=== PATIENT | male | born 1980 | race African-American/Black ===

== ENCOUNTER 2019-07-23 10:07 | Emergency (ER) | payer OTHER ==
[2019-07-23 10:42] LABS: #Basophils 0.1 thou/uL (0.0-0.2); #Eosinphils 0.2 thou/uL (0.0-0.7); #Lymphocytes 1.7 thou/uL (1.20-3.40); #Monocytes 0.5 thou/uL (0.11-0.59); %Basophils 0.9 % (0.0-1.0); %Eosinophils 3.4 % (0.0-10.0); %Lymphocytes 31.9 % (21.0-51.0); %Monocytes 9.2 % (0.0-10.0); %Neutrophils 54.6 % (42.0-75.0); Hemoglobin 13.9 g/dL (14.0-18.0); Mean Corpuscular HGB CONC 33.2 g/dL (32.0-36.0); Mean Corpuscular Hemoglobin 26.1 pg (27.0-31.0); Mean Corpuscular Volume 78.7 fL (78.0-98.0); Mean Platelet Volume 8.3 fL (7.4-10.4); Platelet Count 191 thou/uL (130-400); RBC Distribution Width 13.2 % (11.5-14.5); Red Blood Cell (RBC) Count 5.32 mill/uL (4.70-6.10); White Blood Cell (WBC) Count 5.4 thou/uL (4.8-10.8)
[2019-07-23] MEDS ORDERED: Iopamidol-370 76% 500 ML 1 ML ONE (11:05)
--- NOTE | 2019-07-23 11:12 | RAD ---
Exam: Chest one view HISTORY:Chest pain Comparison: None FINDINGS: Cardiac silhouette: Normal. There are sternotomy wires. Aorta: Unremarkable Pulmonary vessels: Normal Costophrenic angles: Clear LUNGS: No masses or consolidation. Pneumothorax: None Osseous abnormalities: None IMPRESSION: No acute cardiopulmonary process.
[2019-07-23 11:36] LABS: ALT (SGPT) 31 U/L (8-55); AST (SGOT) 23 U/L (5-34); Albumin 4.2 g/dL (3.5-5.0); Alkaline Phosphatase 50 U/L (40-110); Anion Gap 14 mmol/L (10-20); BUN (Urea Nitrogen) 12 mg/dL (8.9-20.6); Bilirubin, Total 0.7 mg/dL (0.2-1.2); CK (CPK) 252 U/L (30-200); Calc. Creatinine Clearance 0 mL/min (70-130); Calcium 8.9 mg/dL (7.8-10.44); Carbon Dioxide 21 mmol/L (22-29); Chloride 105 mmol/L (98-107); Estimated GFR-MDRD Greater than 90; Globulin 3.2 g/dL (2.4-3.5); Glucose 105 mg/dL (70-105); Lipase 8 U/L (8-78); Potassium 5.1 mmol/L (3.5-5.1); Protein, Total 7.4 g/dL (6.0-8.3); Sodium 135 mmol/L (136-145)
--- NOTE | 2019-07-23 12:23 | CT ---
CT PULMONARY ANGIOGRAM WITH IV CONTRAST AND 3-D POSTPROCESSING CTA THORACOABDOMINAL AORTA WITH IV CONTRAST AND 3-D POSTPROCESSING: HISTORY:Chest pain, elevated d-dimer FINDINGS: There is good contrast opacification of the pulmonary arterial vasculature without filling defects to suggest pulmonary embolism. The thoracic aorta demonstrates an extensive dissection involving the ascending and descending aorta and the abdominal aorta with extension into the great vessels of the neck. The left renal artery arises from the false lumen which is well opacified. No pleural or pericardial effusions are seen. No pneumothoraces, focal areas of consolidation or lung nodules are noted. There are degenerative changes in the spine. The spleen, pancreas, adrenal glands and kidneys appear normal. No free air or free fluid is seen in the abdomen. No calcified gallstones are seen. There is a 15 mm low-density lesion in the central portion of the right lobe of the liver and a 7 mm lesion in the inferior aspect of the right lobe of the liver. These would be better evaluated with an ultrasound. IMPRESSION: 1. No CT evidence of pulmonary embolism. 2. DeBakey type I aortic dissection. 3. Liver lesions should be evaluated with ultrasound. Discussed over the telephone with ER staff physician Dr. Zackary Walton at 12:13 PM.
[2019-07-23] MEDS ORDERED: Fentanyl 100 MCG/2 ML VIAL ONE (12:26)
[2019-07-23] MEDS ORDERED: niCARdipine 50 MG in Sodium Chloride 0.9% 250 ML 230 ML IV SCH (12:30)
[2019-07-23] MEDS ORDERED: Ondansetron PF 4 MG/2 ML Vial ONE ×2 (12:32)
[2019-07-23] MEDS ORDERED: Activated Charcoal/Sorbitol 25 GM/120 ML TUBE ONE (12:55)
[2019-07-23] MEDS ORDERED: Esmolol 2,500 MG/250 ML 250 ML ONE (12:55)
== END 2019-07-23 13:23 | disposition short-term general hospital (02) ==
LOC: ERS 10:07
DX: I71.01 Dissection of thoracic aorta (principal); I10 Essential (primary) hypertension; Z79.899 Other long term (current) drug therapy
CPT/HCPCS: 71045; 71275; 72191; 74175; 80053; 82550; 83690; 83880; 84484; 85025; 85379; 93005; 96365; 96375; J2405; J3010; J7050; Q9967